=== PATIENT | male | born 1990 | race Caucasian/White ===

== ENCOUNTER 2017-12-20 10:31 | Emergency (ER) | payer BC ==
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
[2017-12-20 13:40] VITALS: BP 102/55; PULSE 68; RESP 18; TEMP 97.5
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
[2017-12-20 14:42] VITALS: O2SAT 99
== END 2017-12-20 14:53 | disposition home or self-care (01) ==
LOC: C.ER 10:31
DX: S02.2XXA Fracture of nasal bones, initial encounter for closed fracture (principal); Y08.89XA Assault by other specified means, initial encounter; Y92.9 Unspecified place or not applicable